=== PATIENT | male | born 1990 | race Caucasian/White ===

== ENCOUNTER 2020-01-05 13:03 | Emergency (ER) | payer MEDICAID, OTHER ==
[~2020-01-05] VITALS: Ht 182.9 cm; Wt 95.3 kg
[~2020-01-05 13:03] MED LIST: ALBUTEROL SULF8.5 GM INH; AMOXICILLIN500 MG ORAL; BACITRACIN-P28.35 GM NASAL; NEXAFED30 MG ORAL; NKM; TRAMADOL HCL50 MG ORAL
--- NOTE | 2020-01-05 13:52 | Emergency Room Report ---
History of Present Illness General Chief Complaint: Sore Throat Source: Patient Present Illness HPI 29 YO Male presents to the ED c/o 08/[address] with productive cough and fevers x 1 week. Pt. reports he is a regular THC smoker. Pt. reports he has been self medicating at home taking 500mg PCN. He reports taking QD x 3 days. Pt. also has been taking IBU for pain and fevers. Pt. Denies PmHx. Denies recent travel. Denies contact with persons who have tested positive for or are under investigation/quarantine for COVID-19. Pt denies CP, palpitations or sudden onset LINDSEY. He denies dizziness. He reports pain exacerbated with swallowing or with shirt collar being too tight. Pt. denies drooling or inability to tolerate his own saliva. Pt. Denies unilateral throat pain. He denies changes in his voice. Allergies: Coded Allergies: No Known Allergies (Unverified , 11/24/15) COVID-19 Screening Contact w/high risk pt: No Experienced COVID-19 symptoms?: Yes COVID-19 Testing performed OB/GYN PHYSICIAN: No Patient History Past Medical History: see triage record Past Surgical History: none Pertinent Family History: none Reviewed Nursing Documentation: PMH: Agreed; PSxH: Agreed Nursing Documentation-PMH Past Medical History: No Stated History Review of Systems All Other Systems: negative except mentioned in HPI Physical Exam Vital Signs Date Time Temp Pulse Resp B/P (MAP) Pulse Ox O2 Delivery O2 Flow Rate FiO2 01/05/20 13:06 98.2 85 16 131/78 (95) 99 Room Air Sp02 EP Interpretation: reviewed, normal General Appearance: no apparent distress, alert, GCS 15, non-toxic Head: normocephalic, atraumatic Eyes: bilateral eye normal inspection, bilateral eye PERRL ENT: hearing grossly normal, normal voice, TMs + canals normal, uvula midline, moist mucus membranes, pharyngeal erythema Neck: full range of motion, no meningismus, no bony tend Respiratory: chest non-tender, lungs clear, normal breath sounds, no respiratory distress, no accessory muscle use, no wheezing, speaking full sentences Cardiovascular #1: regular rate, rhythm Gastrointestinal: non tender, soft Musculoskeletal: normal range of motion, gait/station normal, non-tender Neurologic: alert, motor strength/tone normal, oriented x3, sensory intact, responsive, speech normal Psychiatric: judgement/insight normal Skin: no rash, normal color Lymphatic: no adenopathy Medical Decision Making PA Attestation Dr. Gilbert Is my supervising Physician whom patient management has been di scussed with. Diagnostic Impression: Primary Impression: Pharyngitis Qualified Codes: J02.0 - Streptococcal pharyngitis ER Course 29 YO Male presents to the ED c/o 08/[address] with productive cough and fevers x 1 week. Pt. reports he is a regular THC smoker. Pt. reports he has been self medicating at home taking 500mg PCN. He reports taking QD x 3 days. Pt. also has been taking IBU for pain and fevers. Pt. Denies PmHx. Denies recent travel. Denies contact with persons who have tested positive for or are under investigation/quarantine for COVID-19. Pt denies CP, palpitations or sudden onset LINDSEY. He denies dizziness. He reports pain exacerbated with swallowing or with shirt collar being too tight. Pt. denies drooling or inability to tolerate his own saliva. Pt. Denies unilateral throat pain. He denies changes in his voice. Ddx considered but are not limited to: pharyngitis, strep, OB/GYN PHYSICIAN, ludwigs angina, URI Vital signs: are WNL, pt. is afebrile H&PE are most consistent with: pharyngitis presumed strep. ORDERS: -CXR: WNL ED INTERVENTIONS: -Decadron 8mg IM -Toradol 30gm IM -I do not identify an emergent condition at this time. With current presentation, pt. is stable for close outpatient follow up and conservative treatment. D/w pt. to return promptly to ED with worsening or new symptoms.- Pt. verbalizes' understanding and agreement with proposed treatment plan. DISCHARGE: At this time pt. is stable for d/c to home. Will provide printed patient care instructions, and any necessary prescriptions. Care plan and follow up instructions have been discussed with the patient prior to discharge. Chest X-Ray Diagnostic Results Chest X-Ray Diagnostic Results : Chest X-Ray Ordered: Yes # of Views/Limited/Complete: 1 View EP Interpretation: Yes PA Xray: Interpretation reviewed, by supervising MD, and agrees with findings. Interpretation: no consolidation, no effusion, no pneumothorax, no acute cardiopulmonary disease Impression: No acute disease Electronically Signed by: Jonelle Hedrick PA-C Last Vital Signs Date Time Temp Pulse Resp B/P (MAP) Pulse Ox O2 Delivery O2 Flow Rate FiO2 01/05/20 13:06 98.2 85 16 131/78 (95) 99 Room Air Disposition: HOME, SELF-CARE Condition: Stable Scripts D-Methorphan Hb/Prometh Hcl* (PROMETHAZINE-DM SYRUP*) 118 Ml Syrup 5 ML ORAL Q6H PRN for For Cough, #120 ML 0 Refills Prov: Jonelle Hedrick 01/05/20 Amoxicillin/Potassium Clav 500-125 Mg Tab* (AMOX TR-K CLV 500-125 MG TAB*) 1 Each Tablet 1 TAB ORAL TID for 10 Days, #30 TAB Prov: Jonelle Hedrick 01/05/20 Patient Instructions: Strep Throat Additional Instructions: Take medications as directed. Follow up with a Primary Care Provider in 3-5 days, even if your symptoms have resolved. --Please review list of primary care clinics, if you do not already have a primary care provider Return sooner to ED if new symptoms occur, or current symptoms become worse. - Please note that this Emergency Department Report was dictated using [employer] software, occasionally this can lead to erroneous entry secondary to interpretation by the dictation equipment. Jonelle Hedrick Jan 05, 2020 13:52
[2020-01-05 14:23] VITALS: BP 131/78
[2020-01-05] MEDS ORDERED: AMOX TR-K CLV1 EAC1 ORAL (14:26)
[2020-01-05] MEDS ORDERED: PROMETHAZINE-D118 ML ORAL (14:26)
[2020-01-05] MEDS ORDERED: Ketorolac 30mg Inj IM ONE (14:30)
--- NOTE | 2020-01-05 14:40 | NUR ---
ED Nurse Note:pt. received pain meds Pt cleared by health care Provider for discharge. DC instructions/prescription was given and explained to pt and verbalized understanding of teachings. All medical deviecs such as ID band removed. Pt is AAO x4, ambulatory and left with all personal belongings.
[2020-01-05 14:56] VITALS: BP 131/78
--- NOTE | 2020-01-05 16:29 | Diagnostic Imaging Report ---
Indication: Chest pain Technique: One view of the chest Comparison: 01/18/2016 Findings: Lungs and pleural spaces are clear. Heart size is normal. Impression: No acute process
== END 2020-01-05 14:56 | disposition home or self-care (01) ==
LOC: EMR 14:20
DX: J02.0 Streptococcal pharyngitis (principal); F12.90 Cannabis use, unspecified, uncomplicated; R07.9 Chest pain, unspecified
CPT/HCPCS: 71045; 96372; J1100; J1885; Z7502; 99283